=== PATIENT | female | born 1940 | race Caucasian/White ===

== ENCOUNTER 2017-11-29 10:20 | Emergency (ER) | payer MEDICARE ==
--- NOTE | 2017-11-29 11:13 | CT ---
CT OF THE HEAD WITHOUT CONTRAST: Date: 11-29-17 Comparison: None. History: Fall, injury, head trauma. Technique: Serial axial CT imaging at 5 mm intervals from the vertex through the skull base without c ontrast. Coronal and sagittal reformatted imaging obtained. FINDINGS: The imaged paranasal sinuses/mastoid air cells are well aerated. There is no displaced calvarial frac ture. No intracranial hemorrhage, midline shift, mass effect or ventricular enlargement. IMPRESSION: No intracranial hemorrhage or displaced calvarial fracture. POS: [facility]
--- NOTE | 2017-11-29 11:30 | CT ---
CT LUMBAR SPINE WITHOUT CONTRAST: Date: 11/29/17 HISTORY: Fall. Low back pain. COMPARISON: None. FINDINGS: No acute fracture or malalignment of the lumbar spine. No significant listhesis. Advanced degenerativ e changes. Moderate diverticular disease of the sigmoid colon without active inflammation. Prior cholecystectomy . No free fluid in the abdomen. Levels are as follows: T12-L1: Mild degenerative disc space height loss. No neural foraminal or spinal canal narrowing. L1-2: Circumferential posterior disc osteophyte complex. No significant neural foraminal or spinal canal na rrowing. L2-3: Severe degenerative disc space height loss. Posterior disc protrusion. Moderate facet arthrosis. Mode rate bilateral neural foraminal narrowing. L3-4: Moderate facet arthrosis. Circumferential disc bulge. Moderate bilateral neural foraminal narrowing. Spinal canal measures approximately 9 mm. L4-5: Posterior disc osteophyte complex, circumferential with circumferential disc bulge. Mild ligamentum f lavum hypertrophy. Spinal canal is narrowed to approximately 11.0 mm. L5-S1: Moderate facet arthrosis. Hypertrophic facet changes. Moderate bilateral neural foraminal narrowing. IMPRESSION: Chronic findings. No acute fracture or malalignment of the lumbar spine. POS: [facility]
== END 2017-11-29 11:20 | disposition home or self-care (01) ==
LOC: MADERS 10:20
DX: S06.0X0A Concussion without loss of consciousness, initial encounter (principal); S00.83XA Contusion of other part of head, initial encounter; M51.36 Other intervertebral disc degeneration, lumbar region; G89.29 Other chronic pain; Z79.891 Long term (current) use of opiate analgesic; W19.XXXA Unspecified fall, initial encounter
CPT/HCPCS: 70450; 72131

== ENCOUNTER 2019-05-05 19:18 | Emergency (ER) | payer MEDICARE | END 2019-05-05 20:00 | disposition home or self-care (01) | LOC: MADERS 19:18 | DX: Z00.00 Encounter for general adult medical examination without abnormal findings (principal); E78.5 Hyperlipidemia, unspecified; I10 Essential (primary) hypertension; Z79.899 Other long term (current) drug therapy | CPT/HCPCS: 93005 ==

== ENCOUNTER 2019-08-05 12:50 | Emergency (ER) | payer MEDICARE ==
[2019-08-05 13:40] LABS: #Basophils 0.1 thou/uL (0.0-0.2); #Eosinphils 0.2 thou/uL (0.0-0.7); #Lymphocytes 2.5 thou/uL (1.20-3.40); #Monocytes 1.2 thou/uL (0.11-0.59); #Neutrophils 8.8 thou/uL (1.40-6.50); %Basophils 0.9 % (0.0-1.0); %Eosinophils 1.7 % (0.0-10.0); %Lymphocytes 19.5 % (21.0-51.0); %Monocytes 9.6 % (0.0-10.0); %Neutrophils 68.3 % (42.0-75.0); Hemoglobin 12.1 g/dL (12.0-16.0); Mean Corpuscular HGB CONC 30.3 g/dL (32.0-36.0); Mean Corpuscular Hemoglobin 27.1 pg (27.0-31.0); Mean Corpuscular Volume 89.5 fL (78.0-98.0); Mean Platelet Volume 8.4 fL (7.4-10.4); Platelet Count 294 thou/uL (130-400); RBC Distribution Width 12.9 % (11.5-14.5); Red Blood Cell (RBC) Count 4.45 mill/uL (4.20-5.40); White Blood Cell (WBC) Count 12.9 thou/uL (4.8-10.8)
--- NOTE | 2019-08-05 13:55 | RAD ---
Portable frontal chest radiograph: 08/05/2019 COMPARISON: 10/06/2018 HISTORY: Chest pain FINDINGS: There is prominence of the cardiac silhouette. Mild increased density in the left base note d, likely on the basis of soft tissue attenuation. Midline sternotomy wires are noted. No pneumothorax, lobar consolidation, or alveolar edema. IMPRESSION: No focal consolidation or alveolar edema. Mild increased density in the left base is like ly on the basis of soft tissue attenuation. If there are symptoms referable to this region, PA and lateral imaging of the chest advised.
[2019-08-05 13:59] LABS: ALT (SGPT) 21 U/L (8-55); AST (SGOT) 21 U/L (5-34); Albumin 4.2 g/dL (3.4-4.8); Alkaline Phosphatase 65 U/L (40-110); Anion Gap 19 mmol/L (10-20); BUN (Urea Nitrogen) 44 mg/dL (9.8-20.1); Bilirubin, Total 0.3 mg/dL (0.2-1.2); Calc. Creatinine Clearance 0 mL/min (70-130); Calcium 10.3 mg/dL (7.8-10.44); Carbon Dioxide 21 mmol/L (23-31); Chloride 107 mmol/L (98-107); Estimated GFR-MDRD 34; Globulin 3.2 g/dL (2.4-3.5); Glucose 141 mg/dL (83-110); Potassium 5.2 mmol/L (3.5-5.1); Protein, Total 7.4 g/dL (6.0-8.3); Sodium 142 mmol/L (136-145)
[2019-08-05 15:32] LABS: Bilirubin Negative (Negative); Blood, Urine Negative (Negative); Glucose, Urine (Dipstick) Negative (Negative); Leukocyte Large (Negative); Nitrite Negative (Negative); Protein, Urine (Dipstick) 30 mg/dL (Neg-Trace); Urobilinogen 0.2 mg/dL (Less than 2)
[2019-08-05 15:33] LABS: Clarity Cloudy (Clear)
[2019-08-05 15:37] LABS: Bacteria/HPF Rare-Few HPF (None Seen); RBC/HPF 0-3 HPF (0-3); WBC/HPF Greater Than 50 HPF (0-3)
--- NOTE | 2019-08-05 15:55 | CT ---
CT CHEST AND ABDOMEN AND PELVIS: 08/05/2019 HISTORY: Pain. COMPARISON: CT abdomen and pelvis from 08/20/2015. TECHNIQUE: Axial CT imaging at 5 mm intervals from the thoracic inlet through the pubic symphysis without contra st. Coronal and sagittal reformatted imaging obtained. FINDINGS: The lack of contrast media limits assessment of the viscera, bowel and vascular structures and for ly mphadenopathy. The patient is status post midline sternotomy/CABG. Coronary arterial calcification is noted. Limited assessment of the chest for lymphadenopathy appears unremarkable. No pleural, pericar dial or mediastinal fluid. No pneumothorax is noted on either side. A focus of linear density is note d within the right lung apex. Further inferiorly there is an ill defined nodular opacity within the r ight upper lobe on axial image 13, measuring approximately 6 mm in transverse dimension. There is an ill defined focus of conspicuous linear density also noted within the right upper lobe on image 20, measuring 7 mm. The left lung appears grossly unremarkable. Review of the osseous structures of the chest demonstrate no worrisome lytic or blastic bone lesion. No free intraperitoneal air or fluid is seen. There is a subtle round mass lesion within the left lobe of the liver, measuring 6.9 x 5.8 cm in grea test AP and transverse dimension, with Hounsfield units of 40-45, consistent with a solid renal mass. This is a new finding when compared to 08/16/2015 and is thus suspicious for neoplasia. The gallblad lanie is surgically absent. The spleen is unremarkable. There is a small sliding type hiatal hernia. Th e pancreas and the adrenal glands appear grossly unremarkable. No acute renal abnormality is noted. 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 There is sigmoid and descending colonic diverticulosis without evidence for diverticulitis. No eviden ce for bowel inflammatory change or obstruction. Appendix not visualized. No right lower quadrant inf lammatory change noted to suggests the presence of acute appendicitis. There is scattered atherosclerotic calcification of the abdominal aorta and its branches. There is no aneurysm seen involving the thoracic or abdominal aorta. The uterus appears surgically absent. Limit ed assessment of the abdomen/pelvis for lymphadenopathy appears unremarkable. No acute osseous abnormality is evident within the abdomen or pelvis. There is significant multilevel degenerative change noted within the spine, particularly the lumbar spine, where there is multilevel disk space narrowing and degenerative endplate change as well as multilevel facet hypertrophy and an terior osteophyte formation. IMPRESSION: 1. Limited examination without contrast media. 2. New soft tissue mass lesion within the left lobe of the liver is suspicious for a neoplastic proce ss. Further evaluation via contrast enhanced imaging is advised, either on the basis of CT or MRI usi ng a hepatic mass protocol. 3. Multifocal atherosclerotic disease. 4. Diverticulosis without evidence for diverticulitis. 5. Ill defined nodular density right upper lobe, recommend follow up CT chest in 6 months. CODE T POS: [facility]
[2019-08-05] MEDS ORDERED: Sodium Chloride 0.9% 500 ML ONE (16:34)
[2019-08-05] MEDS ORDERED: cefTRIAXone\\ROCEPHIN 1 GM VIAL ONE (16:46)
[2019-08-05] MEDS ORDERED: Sodium Chloride 0.9% 100 ML ONE (16:46)
== END 2019-08-05 18:40 | disposition home or self-care (01) ==
LOC: MADERS 12:50
DX: N39.0 Urinary tract infection, site not specified (principal); R16.0 Hepatomegaly, not elsewhere classified; E78.5 Hyperlipidemia, unspecified; I10 Essential (primary) hypertension; E11.9 Type 2 diabetes mellitus without complications; Z79.899 Other long term (current) drug therapy
CPT/HCPCS: 36415; 36416; 71045; 71250; 74177; 80053; 81003; 81015; 83880; 84484; 85025; 87086; 93005; 96361; 96365; J0696; J3490; J7050

== ENCOUNTER 2019-08-07 16:09 | Emergency (ER) | payer MEDICARE ==
[2019-08-07] MEDS ORDERED: Sodium Chloride 0.9% 1,000 ML ONE (16:29)
[2019-08-07 16:35] LABS: #Basophils 0.1 thou/uL (0.0-0.2); #Eosinphils 0.3 thou/uL (0.0-0.7); #Lymphocytes 3.1 thou/uL (1.20-3.40); #Monocytes 1.1 thou/uL (0.11-0.59); #Neutrophils 7.5 thou/uL (1.40-6.50); %Eosinophils 2.4 % (0.0-10.0); %Lymphocytes 25.8 % (21.0-51.0); %Monocytes 9.3 % (0.0-10.0); %Neutrophils 61.5 % (42.0-75.0); Hemoglobin 11.7 g/dL (12.0-16.0); Mean Corpuscular HGB CONC 30.8 g/dL (32.0-36.0); Mean Corpuscular Hemoglobin 27.4 pg (27.0-31.0); Mean Corpuscular Volume 88.8 fL (78.0-98.0); Mean Platelet Volume 8.7 fL (7.4-10.4); Platelet Count 300 thou/uL (130-400); RBC Distribution Width 12.8 % (11.5-14.5); Red Blood Cell (RBC) Count 4.26 mill/uL (4.20-5.40); White Blood Cell (WBC) Count 12.2 thou/uL (4.8-10.8)
[2019-08-07 16:43] LABS: INR-International Normal Ratio 1.3; PTT 28.6 SEC (22.9-36.1)
--- NOTE | 2019-08-07 16:49 | RAD ---
EXAM: CHEST ONE VIEW HISTORY: Heart palpitations be COMPARISON: 08/05/2019 FINDINGS: Lung bases and lower mediastinum are excluded from view on this exam. Cardiac silhouette and pulmonar y vasculature are within normal limits. The visualized lungs are clear. Pleural fluid at either lung base would be difficult to exclude as the lung bases are incompletely imaged on this exam. Posts urgical changes related to median sternotomy are again seen. Vascular calcification in thoracic aorta IMPRESSION: Exclusion of the lung bases, but there is otherwise no acute cardiopulmonary process.
[2019-08-07 16:54] LABS: ALT (SGPT) 21 U/L (8-55); AST (SGOT) 21 U/L (5-34); Albumin 3.9 g/dL (3.4-4.8); Alkaline Phosphatase 79 U/L (40-110); Anion Gap 19 mmol/L (10-20); BUN (Urea Nitrogen) 39 mg/dL (9.8-20.1); Bilirubin, Total 0.2 mg/dL (0.2-1.2); Calc. Creatinine Clearance 0 mL/min (70-130); Calcium 9.6 mg/dL (7.8-10.44); Carbon Dioxide 18 mmol/L (23-31); Chloride 111 mmol/L (98-107); Estimated GFR-MDRD 36; Globulin 3.3 g/dL (2.4-3.5); Glucose 152 mg/dL (83-110); Protein, Total 7.2 g/dL (6.0-8.3); Sodium 144 mmol/L (136-145)
[2019-08-07] MEDS ORDERED: Metoprolol Tartrate 5 MG/5 ML VIAL ONE (17:32)
== END 2019-08-07 21:41 | disposition short-term general hospital (02) ==
LOC: MADERS 16:09
DX: I47.1 Supraventricular tachycardia (principal); I48.91 Unspecified atrial fibrillation; E78.5 Hyperlipidemia, unspecified; I12.9 Hypertensive chronic kidney disease with stage 1 through stage 4 chronic kidney disease, or unspecified chronic kidney disease; N18.9 Chronic kidney disease, unspecified; Z79.899 Other long term (current) drug therapy; Z79.82 Long term (current) use of aspirin; Z79.01 Long term (current) use of anticoagulants
CPT/HCPCS: 71045; 80053; 83880; 84443; 84484; 85025; 85610; 85730; 93005; 96361; 96374; J7050

== ENCOUNTER 2019-08-21 08:04 | Outpatient (CLI) | payer MEDICARE ==
[2019-08-21] MEDS ORDERED: Iopamidol 370 76% 125 ML VIAL FS ONE (10:57)
--- NOTE | 2019-08-21 11:15 | CT ---
CT ABDOMEN WITH AND WITHOUT IV CONTRAST: HISTORY: Left liver lobe mass seen on the CT scan of 08/05/2019. FINDINGS: The lung bases are clear. A small hiatal hernia is present. The spleen, pancreas, adrenal glands and kidneys are normal. The patient is post cholecystectomy. There is a 7.3 x 6.2 x 6.9 cm well circumscribed, partially exophytic mass arising from the left lobe of the liver which demonstrates heterogeneous hyperenhancement on the earlier images and enhancement of the central portion/fibrous tissue/scar on the delayed images. No abnormal biliary ductal dilatat ion is seen. No free air, free fluid or lymphadenopathy is seen in the abdomen. There are vascular calcifications without evidence of aneurysmal dilatation of the abdominal aorta. There are degenerative changes in t he spine. IMPRESSION: A 7.3 x 6.2 x 6.9 cm left hepatic lobe mass has imaging characteristics highly suspicious for focal n odular hyperplasia. A fibrolamellar hepatocellular carcinoma would be less likely in this age group. RECOMMENDATIONS: A six month follow-up CT scan of the abdomen with and without IV contrast using liver mass protocol i s recommended. POS: [facility]
== END 2019-08-21 08:05 | disposition home or self-care (01) ==
LOC: MADLABBHPM 08:04
PROVIDERS: ATTEND Family Medicine
DX: R16.0 Hepatomegaly, not elsewhere classified (principal)
CPT/HCPCS: 36415; 74170; 82565; Q9967

== ENCOUNTER 2019-11-28 15:52 | Emergency (ER) | payer MEDICARE ==
[~2019-11-28 15:52] MED LIST: Sodium Chloride Irrig Solution 250 ML BOT ONE
[2019-11-28] MEDS ORDERED: Lidocaine 1% 20 ML MDV ONE (16:30)
== END 2019-11-28 17:30 | disposition home or self-care (01) ==
LOC: MADERS 15:52
DX: S61.315A Laceration without foreign body of left ring finger with damage to nail, initial encounter (principal); I48.91 Unspecified atrial fibrillation; I12.9 Hypertensive chronic kidney disease with stage 1 through stage 4 chronic kidney disease, or unspecified chronic kidney disease; N18.9 Chronic kidney disease, unspecified; E78.5 Hyperlipidemia, unspecified; I25.10 Atherosclerotic heart disease of native coronary artery without angina pectoris; Z79.01 Long term (current) use of anticoagulants; Z79.899 Other long term (current) drug therapy; Z79.82 Long term (current) use of aspirin; W26.8XXA Contact with other sharp object(s), not elsewhere classified, initial encounter; Y92.000 Kitchen of unspecified non-institutional (private) residence as the place of occurrence of the external cause
CPT/HCPCS: 12001; J2001

== ENCOUNTER 2020-06-15 10:16 | Emergency (ER) | payer MEDICARE | END 2020-06-15 10:47 | disposition home or self-care (01) | LOC: MADERS 10:16 | DX: J01.90 Acute sinusitis, unspecified (principal); I48.91 Unspecified atrial fibrillation; I25.10 Atherosclerotic heart disease of native coronary artery without angina pectoris; I12.9 Hypertensive chronic kidney disease with stage 1 through stage 4 chronic kidney disease, or unspecified chronic kidney disease; N18.9 Chronic kidney disease, unspecified; E78.5 Hyperlipidemia, unspecified; E11.9 Type 2 diabetes mellitus without complications; Z79.01 Long term (current) use of anticoagulants; Z79.899 Other long term (current) drug therapy; Z85.820 Personal history of malignant melanoma of skin | CPT/HCPCS: 99282 ==

== ENCOUNTER 2020-06-28 09:14 | Emergency (ER) | payer MEDICARE ==
[2020-06-28 09:54] LABS: #Basophils 0.2 thou/uL (0.0-0.2); #Eosinphils 0.2 thou/uL (0.0-0.7); #Lymphocytes 2.7 thou/uL (1.20-3.40); #Monocytes 0.9 thou/uL (0.11-0.59); #Neutrophils 5.8 thou/uL (1.40-6.50); %Basophils 1.6 % (0.0-1.0); %Eosinophils 2.3 % (0.0-10.0); %Lymphocytes 27.3 % (21.0-51.0); %Monocytes 9.6 % (0.0-10.0); %Neutrophils 59.3 % (42.0-75.0); Mean Corpuscular HGB CONC 31.4 g/dL (32.0-36.0); Mean Corpuscular Hemoglobin 25.9 pg (27.0-31.0); Mean Corpuscular Volume 82.7 fL (78.0-98.0); Mean Platelet Volume 8.3 fL (7.4-10.4); Platelet Count 291 thou/uL (130-400); RBC Distribution Width 14.4 % (11.5-14.5); Red Blood Cell (RBC) Count 4.25 mill/uL (4.20-5.40); White Blood Cell (WBC) Count 9.7 thou/uL (4.8-10.8)
[2020-06-28 10:16] LABS: Chloride 108 mmol/L (98-107)
[2020-06-28 10:17] LABS: Bilirubin Small (Negative); Blood, Urine Negative (Negative); Glucose, Urine (Dipstick) Negative (Negative); Ketone, Urine Negative (Negative); Leukocyte Moderate (Negative); Nitrite Negative (Negative); Protein, Urine (Dipstick) 30 mg/dL (Neg-Trace); Urobilinogen 0.2 mg/dL (Less than 2)
[2020-06-28 10:18] LABS: Clarity Slightly Cloudy (Clear)
[2020-06-28 10:22] LABS: ALT (SGPT) 21 U/L (8-55); AST (SGOT) 38 U/L (5-34); Albumin 3.9 g/dL (3.4-4.8); Alkaline Phosphatase 69 U/L (40-110); Anion Gap 20 mmol/L (10-20); BUN (Urea Nitrogen) 49 mg/dL (9.8-20.1); Bilirubin, Total 0.3 mg/dL (0.2-1.2); Calc. Creatinine Clearance 0 mL/min (70-130); Calcium 9.3 mg/dL (7.8-10.44); Carbon Dioxide 17 mmol/L (23-31); Estimated GFR-MDRD 36; Globulin 3.1 g/dL (2.4-3.5); Glucose 159 mg/dL (83-110); Magnesium 2.1 mg/dL (1.6-2.6); Potassium 6.1 mmol/L (3.5-5.1); Sodium 139 mmol/L (136-145)
[2020-06-28 10:25] LABS: Bacteria/HPF Rare-Few HPF (None Seen); RBC/HPF 0-3 HPF (0-3); WBC/HPF 21-50 HPF (0-3)
--- NOTE | 2020-06-28 10:37 | RAD ---
PORTABLE CHEST: DATE: 06/28/2020. PROVIDED CLINICAL HISTORY: Chest discomfort, shortness of breath, dyspnea on exertion. FINDINGS: Comparison 08/07/2019. Cardiac and mediastinal silhouette is unchanged in appearance. Median sterno eric changes and vascular calcification are again noted. No focal consolidation, pleural fluid, or p neumothorax apparent. IMPRESSION: No evidence for an acute cardiopulmonary process. POS: [facility]
[2020-06-28] MEDS ORDERED: Furosemide 20 MG/2 ML VIAL ONE (10:49)
[2020-06-28] MEDS ORDERED: Nitroglycerin 2% Ointment 1 INCH/1 GM Packet ONE (10:49)
[2020-06-28] MEDS ORDERED: Aspirin Chewable 81 MG TAB ONE (10:49)
[2020-06-28 11:31] LABS: Anion Gap 19 mmol/L (10-20); BUN (Urea Nitrogen) 46 mg/dL (9.8-20.1); Calc. Creatinine Clearance 0 mL/min (70-130); Calcium 9.9 mg/dL (7.8-10.44); Carbon Dioxide 21 mmol/L (23-31); Chloride 107 mmol/L (98-107); Estimated GFR-MDRD 36; Glucose 140 mg/dL (83-110); Potassium 4.8 mmol/L (3.5-5.1); Sodium 142 mmol/L (136-145)
== END 2020-06-28 12:40 | disposition short-term general hospital (02) ==
LOC: MADERS 09:14
DX: I24.9 Acute ischemic heart disease, unspecified (principal); E87.70 Fluid overload, unspecified; I48.91 Unspecified atrial fibrillation; I12.9 Hypertensive chronic kidney disease with stage 1 through stage 4 chronic kidney disease, or unspecified chronic kidney disease; E11.22 Type 2 diabetes mellitus with diabetic chronic kidney disease; N18.9 Chronic kidney disease, unspecified; E78.5 Hyperlipidemia, unspecified; G89.29 Other chronic pain; Z79.899 Other long term (current) drug therapy; I25.10 Atherosclerotic heart disease of native coronary artery without angina pectoris
CPT/HCPCS: 36415; 36416; 71045; 80053; 81003; 81015; 83735; 83880; 84443; 84484; 85025; 87086; 93005; 96374; J1940

== ENCOUNTER 2020-07-07 10:39 | Emergency (ER) | payer MEDICARE ==
--- NOTE | 2020-07-07 11:26 | RAD ---
XR Chest 1 View Portable HISTORY: Dyspnea COMPARISON: 07/01/2020 FINDINGS: The heart size is normal. Changes of median sternotomy and left-sided pacemaker device are again seen. The lungs are well expanded without focal areas of consolidation, pneumothorax or pleural effusions. IMPRESSION: No radiographic evidence of acute cardiopulmonary process.
[2020-07-07 11:28] LABS: #Basophils 0.1 thou/uL (0.0-0.2); #Eosinphils 0.3 thou/uL (0.0-0.7); #Lymphocytes 2.8 thou/uL (1.20-3.40); #Monocytes 1.2 thou/uL (0.11-0.59); #Neutrophils 7.1 thou/uL (1.40-6.50); %Basophils 1.2 % (0.0-1.0); %Eosinophils 2.5 % (0.0-10.0); %Lymphocytes 23.9 % (21.0-51.0); %Monocytes 10.4 % (0.0-10.0); Hemoglobin 10.3 g/dL (12.0-16.0); Mean Corpuscular HGB CONC 31.4 g/dL (32.0-36.0); Mean Corpuscular Hemoglobin 26.8 pg (27.0-31.0); Mean Corpuscular Volume 85.2 fL (78.0-98.0); Mean Platelet Volume 9.1 fL (7.4-10.4); Platelet Count 237 thou/uL (130-400); RBC Distribution Width 13.9 % (11.5-14.5); Red Blood Cell (RBC) Count 3.84 mill/uL (4.20-5.40); White Blood Cell (WBC) Count 11.5 thou/uL (4.8-10.8)
[2020-07-07 11:28] LABS: Bilirubin Negative (Negative); Blood, Urine Negative (Negative); Clarity Clear (Clear); Glucose, Urine (Dipstick) Negative (Negative); Ketone, Urine Negative (Negative); Leukocyte Small (Negative); Nitrite Negative (Negative); Protein, Urine (Dipstick) Negative (Neg-Trace); Urobilinogen 0.2 mg/dL (Less than 2); pH, Urine 5.5 (5.0-9.0)
[2020-07-07] MEDS ORDERED: Sodium Chloride 0.9% 100 ML ONE (11:33)
[2020-07-07] MEDS ORDERED: Cefepime 2 GM VIAL ONE (11:33)
[2020-07-07 11:35] LABS: Albumin 3.5 g/dL (3.4-4.8); Anion Gap 18 mmol/L (10-20); Calcium 9.2 mg/dL (7.8-10.44); Carbon Dioxide 20 mmol/L (23-31); Chloride 105 mmol/L (98-107); Globulin 2.9 g/dL (2.4-3.5); Glucose 151 mg/dL (83-110); Potassium 4.2 mmol/L (3.5-5.1); Protein, Total 6.4 g/dL (6.0-8.3); Sodium 139 mmol/L (136-145)
[2020-07-07] MEDS ORDERED: Sodium Chloride 0.9% 1,000 ML ONE (11:46)
[2020-07-07 11:51] LABS: Bilirubin, Total 0.3 mg/dL (0.2-1.2)
[2020-07-07 11:59] LABS: Bacteria/HPF Rare-Few HPF (None Seen); RBC/HPF 0-3 HPF (0-3); Squamous Epithelial 0-3 HPF (0-3)
[2020-07-07] MEDS ORDERED: Sodium Chloride 0.9% 250 ML 250 ML ONE (12:07)
[2020-07-07 12:08] LABS: ALT (SGPT) 15 U/L (8-55); AST (SGOT) 22 U/L (5-34); Alkaline Phosphatase 72 U/L (40-110); BUN (Urea Nitrogen) 44 mg/dL (9.8-20.1); CK (CPK) 39 U/L (29-168); Calc. Creatinine Clearance 0 mL/min (70-130); Estimated GFR-MDRD 36
== END 2020-07-07 12:55 | disposition short-term general hospital (02) ==
LOC: MADERS 10:39
DX: T81.41XA Infection following a procedure, superficial incisional surgical site, initial encounter (principal); A41.9 Sepsis, unspecified organism; R65.20 Severe sepsis without septic shock; I48.91 Unspecified atrial fibrillation; I12.9 Hypertensive chronic kidney disease with stage 1 through stage 4 chronic kidney disease, or unspecified chronic kidney disease; N18.9 Chronic kidney disease, unspecified; I25.10 Atherosclerotic heart disease of native coronary artery without angina pectoris; E78.5 Hyperlipidemia, unspecified; Z79.01 Long term (current) use of anticoagulants; Z79.899 Other long term (current) drug therapy; Z79.82 Long term (current) use of aspirin
CPT/HCPCS: 36415; 71045; 80053; 81003; 81015; 82550; 83605; 83880; 84484; 85025; 87040; 87086; 93005; 94760; 96365; 96367; J0692; J3370; J3490; J7050

== ENCOUNTER 2020-11-03 10:55 | Outpatient (CLI) | payer MEDICARE | END 2020-11-03 10:56 | disposition home or self-care (01) | LOC: MADEKG 10:55 | PROVIDERS: ATTEND Family Medicine | DX: I48.91 Unspecified atrial fibrillation (principal) | CPT/HCPCS: 93005; 93010 ==

== ENCOUNTER 2020-11-13 11:08 | Outpatient (CLI) | payer MEDICARE | END 2020-11-13 11:09 | disposition home or self-care (01) | LOC: MADRAD 11:08 | PROVIDERS: ATTEND Internal Medicine Cardiovascular Disease | DX: Z92.29 Personal history of other drug therapy (principal); I70.0 Atherosclerosis of aorta; R91.8 Other nonspecific abnormal finding of lung field | CPT/HCPCS: 71046 ==

== ENCOUNTER 2021-04-29 13:09 | Emergency (ER) | payer MEDICARE ==
[2021-04-29 14:29] LABS: ALT (SGPT) 28 U/L (8-55); AST (SGOT) 48 U/L (5-34); Albumin 3.3 g/dL (3.4-4.8); Alkaline Phosphatase 89 U/L (40-110); Anion Gap 17 mmol/L (10-20); BUN (Urea Nitrogen) 31 mg/dL (9.8-20.1); Bilirubin, Total 0.5 mg/dL (0.2-1.2); Calc. Creatinine Clearance 0 mL/min (70-130); Calcium 9.3 mg/dL (7.8-10.44); Carbon Dioxide 18 mmol/L (23-31); Chloride 108 mmol/L (98-107); Globulin 3.2 g/dL (2.4-3.5); Glucose 193 mg/dL (83-110); Lipase 42 U/L (8-78); Potassium 5.1 mmol/L (3.5-5.1); Protein, Total 6.5 g/dL (5.8-8.1); Sodium 138 mmol/L (136-145)
[2021-04-29 14:50] LABS: #Basophils 0.1 thou/uL (0.0-0.2); #Eosinphils 0.2 thou/uL (0.0-0.7); #Lymphocytes 2.1 thou/uL (1.20-3.40); #Monocytes 1.2 thou/uL (0.11-0.59); #Neutrophils 6.9 thou/uL (1.40-6.50); %Basophils 0.7 % (0.0-1.0); %Eosinophils 1.6 % (0.0-10.0); %Lymphocytes 20.5 % (21.0-51.0); %Monocytes 11.2 % (0.0-10.0); %Neutrophils 66.1 % (42.0-75.0); Hemoglobin 9.5 g/dL (12.0-16.0); Mean Corpuscular Hemoglobin 26.1 pg (27.0-31.0); Mean Corpuscular Volume 83.9 fL (78.0-98.0); Mean Platelet Volume 8.8 fL (7.4-10.4); Platelet Count 215 thou/uL (130-400); RBC Distribution Width 15.6 % (11.5-14.5); Red Blood Cell (RBC) Count 3.66 mill/uL (4.20-5.40); White Blood Cell (WBC) Count 10.4 thou/uL (4.8-10.8)
== END 2021-04-29 14:54 | disposition short-term general hospital (02) ==
LOC: MADERS 13:09
DX: I95.9 Hypotension, unspecified (principal); D68.8 Other specified coagulation defects; R10.9 Unspecified abdominal pain; R14.0 Abdominal distension (gaseous); I48.91 Unspecified atrial fibrillation; I25.10 Atherosclerotic heart disease of native coronary artery without angina pectoris; E78.5 Hyperlipidemia, unspecified; I12.9 Hypertensive chronic kidney disease with stage 1 through stage 4 chronic kidney disease, or unspecified chronic kidney disease; N18.9 Chronic kidney disease, unspecified; Z85.820 Personal history of malignant melanoma of skin; Z79.899 Other long term (current) drug therapy; Z79.891 Long term (current) use of opiate analgesic; Z79.01 Long term (current) use of anticoagulants
CPT/HCPCS: 36415; 80053; 83690; 84484; 85025; 93005

== ENCOUNTER 2021-05-22 18:15 | Emergency (ER) | payer MEDICARE ==
[2021-05-22 20:42] LABS: #Lymphocytes 1.4 thou/uL (1.20-3.40); #Monocytes 0.6 thou/uL (0.11-0.59); #Neutrophils 2.7 thou/uL (1.40-6.50); %Basophils 0.5 % (0.0-1.0); %Eosinophils 0.9 % (0.0-10.0); %Monocytes 12.3 % (0.0-10.0); %Neutrophils 56.2 % (42.0-75.0); Hemoglobin 11.2 g/dL (12.0-16.0); Mean Corpuscular HGB CONC 31.3 g/dL (32.0-36.0); Mean Corpuscular Hemoglobin 26.2 pg (27.0-31.0); Mean Corpuscular Volume 83.7 fL (78.0-98.0); Mean Platelet Volume 8.9 fL (7.4-10.4); Platelet Count 192 thou/uL (130-400); RBC Distribution Width 14.6 % (11.5-14.5); Red Blood Cell (RBC) Count 4.28 mill/uL (4.20-5.40); White Blood Cell (WBC) Count 4.8 thou/uL (4.8-10.8)
[2021-05-22] MEDS ORDERED: Ibuprofen 400 MG TAB ONE (20:48)
[2021-05-22] MEDS ORDERED: Ondansetron ODT 4 MG TAB ONE (20:49)
[2021-05-22 21:00] LABS: ALT (SGPT) 34 U/L (8-55); AST (SGOT) 81 U/L (5-34); Albumin 3.6 g/dL (3.4-4.8); Alkaline Phosphatase 88 U/L (40-110); Anion Gap 19 mmol/L (10-20); BUN (Urea Nitrogen) 24 mg/dL (9.8-20.1); Bilirubin, Total 0.5 mg/dL (0.2-1.2); CK (CPK) 16 U/L (29-168); Calc. Creatinine Clearance 0 mL/min (70-130); Calcium 9.6 mg/dL (7.8-10.44); Carbon Dioxide 16 mmol/L (23-31); Chloride 103 mmol/L (98-107); Globulin 3.5 g/dL (2.4-3.5); Glucose 121 mg/dL (83-110); Potassium 4.4 mmol/L (3.5-5.1); Protein, Total 7.1 g/dL (5.8-8.1); Sodium 134 mmol/L (136-145)
[2021-05-22 21:01] LABS: CKMB 0.5 ng/mL (0-6.6)
[2021-05-24 00:07] LABS: SARS-CoV-2 PCR by NAA DETECTED (NotDetected)
== END 2021-05-22 21:43 | disposition home or self-care (01) ==
LOC: MADERS 18:15
DX: U07.1 COVID-19 (principal); J20.9 Acute bronchitis, unspecified; R11.2 Nausea with vomiting, unspecified; I48.91 Unspecified atrial fibrillation; I25.10 Atherosclerotic heart disease of native coronary artery without angina pectoris; I12.9 Hypertensive chronic kidney disease with stage 1 through stage 4 chronic kidney disease, or unspecified chronic kidney disease; E11.22 Type 2 diabetes mellitus with diabetic chronic kidney disease; N18.9 Chronic kidney disease, unspecified
CPT/HCPCS: 71045; 80053; 82550; 82553; 84484; 85025; U0003; U0005; Q0162

== ENCOUNTER 2021-05-28 16:15 | Emergency (ER) | payer MEDICARE ==
[2021-05-28 16:58] LABS: #Eosinphils 0.2 thou/uL (0.0-0.7); #Lymphocytes 1.6 thou/uL (1.20-3.40); #Monocytes 0.7 thou/uL (0.11-0.59); #Neutrophils 3.1 thou/uL (1.40-6.50); %Basophils 0.8 % (0.0-1.0); %Eosinophils 3.2 % (0.0-10.0); %Lymphocytes 28.2 % (21.0-51.0); %Monocytes 12.2 % (0.0-10.0); %Neutrophils 55.5 % (42.0-75.0); Hemoglobin 9.1 g/dL (12.0-16.0); Mean Corpuscular HGB CONC 31.3 g/dL (32.0-36.0); Mean Corpuscular Hemoglobin 26.4 pg (27.0-31.0); Mean Corpuscular Volume 84.4 fL (78.0-98.0); Mean Platelet Volume 7.4 fL (7.4-10.4); Platelet Count 261 thou/uL (130-400); RBC Distribution Width 14.5 % (11.5-14.5); Red Blood Cell (RBC) Count 3.45 mill/uL (4.20-5.40); White Blood Cell (WBC) Count 5.6 thou/uL (4.8-10.8)
[2021-05-28 17:09] LABS: ALT (SGPT) 26 U/L (8-55); AST (SGOT) 52 U/L (5-34); Albumin 3.2 g/dL (3.4-4.8); Alkaline Phosphatase 78 U/L (40-110); Anion Gap 14 mmol/L (10-20); BUN (Urea Nitrogen) 24 mg/dL (9.8-20.1); Bilirubin, Total 0.4 mg/dL (0.2-1.2); CK (CPK) 13 U/L (29-168); Calc. Creatinine Clearance 0 mL/min (70-130); Calcium 9.4 mg/dL (7.8-10.44); Carbon Dioxide 19 mmol/L (23-31); Chloride 103 mmol/L (98-107); Glucose 116 mg/dL (83-110); Potassium 4.7 mmol/L (3.5-5.1); Protein, Total 6.2 g/dL (5.8-8.1); Sodium 131 mmol/L (136-145)
[2021-05-28] MEDS ORDERED: Sodium Chloride 0.9% 1,000 ML ONE (17:37)
[2021-05-28] MEDS ORDERED: Ondansetron PF 4 MG/2 ML Vial ONE ×2 (17:37→17:43)
[2021-05-28] MEDS ORDERED: Dexamethasone 10 MG/ML VIAL ONE (19:21)
== END 2021-05-28 19:48 | disposition home or self-care (01) ==
LOC: MADERS 16:15
DX: U07.1 COVID-19 (principal); J12.82 Pneumonia due to coronavirus disease 2019; J20.8 Acute bronchitis due to other specified organisms; D64.9 Anemia, unspecified; R16.0 Hepatomegaly, not elsewhere classified; R11.2 Nausea with vomiting, unspecified; I48.91 Unspecified atrial fibrillation; I25.10 Atherosclerotic heart disease of native coronary artery without angina pectoris; I12.9 Hypertensive chronic kidney disease with stage 1 through stage 4 chronic kidney disease, or unspecified chronic kidney disease; N18.9 Chronic kidney disease, unspecified
CPT/HCPCS: 71045; 71250; 74176; 80053; 82550; 83605; 83880; 84484; 85025; 85379; 86140; 87040; 93005; 94760; 96374; 96375; J1100; J2405; J7050

== ENCOUNTER 2021-06-04 19:26 | Emergency (ER) | payer MEDICARE ==
[2021-06-04] MEDS ORDERED: Morphine 4 MG/ML VIAL ONE (19:50)
[2021-06-04] MEDS ORDERED: Ondansetron PF 4 MG/2 ML Vial ONE (19:51)
[2021-06-04 19:58] LABS: #Basophils 0.1 thou/uL (0.0-0.2); #Eosinphils 0.1 thou/uL (0.0-0.7); #Lymphocytes 1.2 thou/uL (1.20-3.40); #Monocytes 1.3 thou/uL (0.11-0.59); #Neutrophils 8.2 thou/uL (1.40-6.50); %Basophils 0.9 % (0.0-1.0); %Eosinophils 0.5 % (0.0-10.0); %Lymphocytes 11.3 % (21.0-51.0); %Neutrophils 75.3 % (42.0-75.0); Hemoglobin 10.7 g/dL (12.0-16.0); Mean Corpuscular Hemoglobin 26.5 pg (27.0-31.0); Mean Corpuscular Volume 85.5 fL (78.0-98.0); Mean Platelet Volume 7.8 fL (7.4-10.4); Platelet Count 201 thou/uL (130-400); RBC Distribution Width 15.1 % (11.5-14.5); Red Blood Cell (RBC) Count 4.04 mill/uL (4.20-5.40); White Blood Cell (WBC) Count 10.9 thou/uL (4.8-10.8)
[2021-06-04 20:17] LABS: ALT (SGPT) 114 U/L (8-55); AST (SGOT) 109 U/L (5-34); Albumin 3.4 g/dL (3.4-4.8); Alkaline Phosphatase 78 U/L (40-110); Anion Gap 15 mmol/L (10-20); BUN (Urea Nitrogen) 49 mg/dL (9.8-20.1); Bilirubin, Total 0.6 mg/dL (0.2-1.2); Calc. Creatinine Clearance 0 mL/min (70-130); Calcium 10.1 mg/dL (7.8-10.44); Carbon Dioxide 22 mmol/L (23-31); Chloride 102 mmol/L (98-107); Glucose 144 mg/dL (83-110); Lipase 55 U/L (8-78); Potassium 4.8 mmol/L (3.5-5.1); Protein, Total 6.4 g/dL (5.8-8.1); Sodium 134 mmol/L (136-145)
[2021-06-04] MEDS ORDERED: Promethazine 25 MG TAB ONE (23:15)
[2021-06-04] MEDS ORDERED: Acetaminophen 325 MG TAB ONE (23:15)
[2021-06-04] MEDS ORDERED: HYDROcodone/Acetaminophen 5/325 mg Tablet ONE (23:15)
== END 2021-06-04 23:33 | disposition home or self-care (01) ==
LOC: MADERS 19:26
DX: R19.07 Generalized intra-abdominal and pelvic swelling, mass and lump (principal); R11.0 Nausea; R10.817 Generalized abdominal tenderness; I48.91 Unspecified atrial fibrillation; I12.9 Hypertensive chronic kidney disease with stage 1 through stage 4 chronic kidney disease, or unspecified chronic kidney disease; N18.9 Chronic kidney disease, unspecified; E11.22 Type 2 diabetes mellitus with diabetic chronic kidney disease; I25.10 Atherosclerotic heart disease of native coronary artery without angina pectoris; E78.5 Hyperlipidemia, unspecified; Z85.820 Personal history of malignant melanoma of skin; Z79.01 Long term (current) use of anticoagulants; Z79.899 Other long term (current) drug therapy
CPT/HCPCS: 74176; 80053; 83605; 83690; 85025; 96374; 96375; J2270; J2405; Q0169